=== PATIENT | male | born 1975 | race Caucasian/White ===

== ENCOUNTER 2019-06-17 11:21 | Inpatient (IN) | payer SELFPAY ==
--- NOTE | 2019-06-17 11:29 | W.ED.PSYCH ---
HPI - Psych General: Chief Complaint: Psychiatric Symptoms Stated Complaint: MHE Time Seen by Provider: 06/17/19 11:29 Source: patient Mode of arrival: ambulatory Limitations: no limitations History of Present Illness: HPI Narrative: Patient is a 44-year-old male who presents to ED today with complaints of auditory hallucinations and suicidal ideations. Patient tells me there is a family history of schizophrenia however he himself has never been diagnosed. He has been experiencing auditory hallucinations for the past 8 months but states the voices are worsening. He states the voices are calling me everything but a white man . He states that the voices often are a man and woman and they often speak of sexual things. He has not experienced any visual hallucinations. He states suicidal thoughts have been present for approximately a year and a half however these too, are worsening. He has no specific plan. He has never attempted suicide previously. He denies recent alcohol or drug use. He has never sought evaluation for the symptoms previously. MD complaint: suicidal ideation and other (auditory hallucinations ) Onset (ago): month(s) History of same: No Relieving factors: none Exacerbating factors: none Associated psychiatric symptoms: suicidal ideation and auditory hallucinations Associated symptoms: Reports auditory hallucinations, depression and suicidal ideation; Deny visual hallucinations or homicidal ideation Review of Systems Const: Denies: fever or chills Card: Denies: chest pain, palpitations, lightheadedness or syncope Resp: Denies: shortness of breath GI: Denies: abdominal pain, nausea, vomiting or diarrhea Skin/Breast: Denies: rash Neuro: Denies: headache Psych: Reports: depression, hopelessness, loss of interest, auditory hallucinations and suicidal ideation; Denies: anxiety, visual hallucinations or homicidal ideation [facility], [facility] ED PFSH: Social History Smoking and tobacco status: current every day smoker Physical Exam Const: COMMON NORMALS: no apparent distress, oriented x3, alert and well nourished GENERAL APPEARANCE: cooperative and well kempt ORIENTATION/CONSCIOUSNESS: Yes oriented to person, Yes oriented to place and Yes oriented to time Resp: COMMON NORMALS: normal respiratory effort and clear to auscultation bilaterally AUSCULTATION: clear to auscultation bilaterally Cardio: COMMON NORMALS: regular rate and regular rhythm RATE: regular rate RHYTHM: regular rhythm Neuro: JUANITO COMA SCALE: document GCS findings [place] coma scale eye opening: Spontaneous [place] coma scale verbal response: Orientated [place] coma scale motor response: Obey commands Juanito coma scale total score: 15 COMMON NORMALS: oriented x3 SENSORIUM/ORIENTATION: Yes alert, Yes oriented to person, Yes oriented to place and Yes oriented to time Psych: COMMON NORMALS: mental status grossly normal, thought process normal, cooperative, speech normal and activity/motor behavior normal APPEARANCE: Yes well kempt ACTIVITY/MOTOR BEHAVIOR: Yes appropriate eye contact and No psychomotor agitation SPEECH: Yes normal speech MOOD & AFFECT: Yes flat affect THOUGHT PROCESS: normal thought process THOUGHT CONTENT: Yes normal thought content MEMORY/COGNITION: Yes memory grossly intact and Yes cognition grossly intact INSIGHT: insight good JUDGEMENT: judgment good MDM - Psych Lab Data: Labs: Lab Results 06/17/19 06/17/19 06/17/19 Range/Units 11:55 11:58 11:58 WBC 8.8 (4.0-10.0) 10^3/ uL RBC 5.97 H (4.1-5.3) 10^6/u L Hgb 18.0 H (11.7-16.6) g/dL Hct 53.4 H (42.0-52.0) % MCV 89.4 (80-94) fL MCH 30.2 (28.0-34.0) pg MCHC 33.7 (30.0-36.0) g/dL RDW 12.1 (12.1-15.1) % Plt Count 346 (130-400) 10^3/c mm MPV 10.2 (7.4-10.4) fL Neut % (Auto) 75.0 % Lymph % (Auto) 17.9 % [place] % (Auto) 5.2 % Eos % (Auto) 1.1 % Baso % (Auto) 0.6 % Neut # (Auto) 6.6 (1.8-7.7) 10^3/u L Lymph # (Auto) 1.6 (0.8-4.8) 10^3/u L [place] # (Auto) 0.5 (0.2-0.9) 10^3/u L Eos # (Auto) 0.1 (0.0-0.8) 10^3/u L Baso # (Auto) 0.1 (0.0-0.1) 10^3/u L Nucleated RBC % (a uto) 0 % Nucleated RBCs # 0.0 /100WBC Sodium 138 (136-145) mmol/L Potassium 4.1 (3.5-5.1) mmol/L Chloride 100 (98-107) mmol/L Carbon Dioxide 24 (22-29) mmol/L Anion Gap 18.1 (5-19) BUN 9 (6-20) mg/dL Creatinine 1.1 (0.7-1.2) mg/dL GFR Calculation 72.4 L (90-130) mL/min Glucose 114 (65-115) mg/dL Calculated Osmolal ity 283 L (285-295) mOsm/k g Calcium 9.9 (8.5-10.5) mg/dL Total Bilirubin 0.4 (0.15-1.2) mg/dL AST 13 (0-40) U/L ALT 13 (0-41) U/L Alkaline Phosphata se 104 (40-130) IU/L Total Protein 8.1 (6.6-8.7) g/dL Albumin 4.5 (3.5-5.2) g/dL Globulin 3.6 (1.3-4.6) g/dL Salicylates < 0.3 L (3-10) mg/dL Urine Opiates Scre en Negative (Negative) ng/mL Acetaminophen < 5.0 L (10-30) ug/mL Ur Barbiturates Sc reen Negative (Negative) ng/mL Ur Phencyclidine S crn Negative (Negative) ng/mL Ur Amphetamines Sc reen Negative (Negative) ng/mL U Benzodiazepines Scrn Negative (Negative) ng/mL Urine Cocaine Scre en Negative (Negative) ng/mL U Marijuana (THC) Screen Negative (Negative) ng/mL Ethyl Alcohol < 10 (0-10) mg/dL Discharge Plan Discharge Patient Disposition: Psych Hosp/Unit w Plan Readm Clinical Impression: Suicidal ideation, Auditory hallucinations Condition: Stable Discharge Date/Time: 06/17/19 13:36 Coding Level of Care Code ED Benzene Worker for Ne Fwd Exam Detailed
[2019-06-17 11:33] VITALS: BP 129/91; PULSE 92; RESP 16; TEMP 37.2; O2SAT 95; BMI 36.6
[2019-06-17 12:08] LABS: Basophils # 0.1 10^3/uL (0.0-0.1); Basophils % 0.6 %; Eosinophils # 0.1 10^3/uL (0.0-0.8); Eosinophils % 1.1 %; Hematocrit 53.4 % (42.0-52.0); Lymphocytes # 1.6 10^3/uL (0.8-4.8); Lymphocytes % 17.9 %; Mean Corpuscular HGB Conc 33.7 g/dL (30.0-36.0); Mean Corpuscular Hemoglobin 30.2 pg (28.0-34.0); Mean Corpuscular Volume 89.4 fL (80-94); Mean Platelet Volume 10.2 fL (7.4-10.4); Monocytes # 0.5 10^3/uL (0.2-0.9); Monocytes % 5.2 %; Neutrophils # 6.6 10^3/uL (1.8-7.7); Nucleated Red Blood Cells % 0 %; Platelet Count 346 10^3/cmm (130-400); Red Blood Count 5.97 10^6/uL (4.1-5.3); Red Cell Distribution Width 12.1 % (12.1-15.1); White Blood Count 8.8 10^3/uL (4.0-10.0)
[2019-06-17 12:21] LABS: Amphetamines Screen Urine Negative (Negative); Barbiturates Screen Urine Negative (Negative); Benzodiazepines Screen Urine Negative (Negative); Cocaine Screen Urine Negative (Negative); Opiate Screen Urine Negative (Negative); PCP Screen Urine Negative (Negative); THC Screen Urine Negative (Negative)
[2019-06-17 12:25] LABS: Alanine Aminotransferase 13 U/L (0-41); Albumin Level 4.5 g/dL (3.5-5.2); Alkaline Phosphatase 104 IU/L (40-130); Anion Gap 18.1 (5-19); Aspartate Amino Transferase 13 U/L (0-40); Blood Urea Nitrogen 9 mg/dL (6-20); Calcium 9.9 mg/dL (8.5-10.5); Carbon Dioxide 24 mmol/L (22-29); Chloride 100 mmol/L (98-107); Globulin 3.6 g/dL (1.3-4.6); Glomerular Filtration Rate 72.4 mL/min (90-130); Glucose 114 mg/dL (65-115); Osmolality Calculated 283 mOsm/kg (285-295); Potassium 4.1 mmol/L (3.5-5.1); Sodium 138 mmol/L (136-145); Total Bilirubin 0.4 mg/dL (0.15-1.2); Total Protein 8.1 g/dL (6.6-8.7)
[2019-06-17 12:26] LABS: Acetaminophen < 5.0 ug/mL (10-30); Alcohol Level < 10 mg/dL (0-10); Salicylate < 0.3 mg/dL (3-10)
[2019-06-17 13:15] VITALS: BP 125/90; PULSE 68; RESP 17; O2SAT 98
[2019-06-17 14:13] VITALS: BP 127/91; PULSE 81; RESP 18; TEMP 36.9; O2SAT 97
[2019-06-17 20:56] VITALS: BP 116/71; PULSE 85; RESP 20; TEMP 37.6; O2SAT 94
--- NOTE | 2019-06-17 21:30 | PC.NURSE ---
pt offered sllep med at this time but refused.
[2019-06-18 06:00] VITALS: BP 104/66; PULSE 68; RESP 17; TEMP 36.9; O2SAT 93
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
[2019-06-18 14:00] VITALS: BP 103/68; PULSE 70; RESP 18; TEMP 36.6; O2SAT 95
[2019-06-18] MEDS: ARIPiprazole 10 mg Tablet PO (14:44)
[2019-06-18 21:28] VITALS: BP 113/79; PULSE 77; RESP 18; TEMP 37.1; O2SAT 94
[2019-06-19 06:00] VITALS: BP 127/82; PULSE 76; RESP 16; TEMP 36.6; O2SAT 96
[2019-06-19] MEDS: ARIPiprazole 10 mg Tablet PO (08:04)
--- NOTE | 2019-06-19 10:34 | P.PN_ITS ---
Subjective NPU Subjective: Interval history: The patient presents today reporting that he feels like the medication has been really helpful. He reports he is still having some suicidal thoughts and bad thoughts, but he reports those things are resolving, or at least starting to decrease. We discussed the risks, benefits, and alternatives of adding Prozac, or some other SSRI, to the current medi cation, and he understood and agreed to proceed as is documented in this note. The decision not to add was his and rested upon the fact that he felt the medication is going okay. 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 He reports that he is eating okay and sleeping better. Mental Status Exam MSE Comments: This is an obese, white male, with adequate dress, limited grooming, and improved eye contact. No abnormal movements, except for mild but improving psychomotor retardation. Cooperative with exam in no acute distress. Speech was decreased rate and volume, but improving. Mood described as a little better; affect congruent. Thought process, organized. Thought content: patient denied any homicidal ideation but endorsed suicidal ideation, which is improving, there were no delusions noted, but he did report continued paranoia, he reported that the auditory and visual hallucinations were resolving. Attention, concentration, and memory appeared intact but were not formally tested. He is alert and oriented times three. Insight and judgment are limited but improving. Vitals/I&O/Wt Last Vital Signs Temp 97.9 F 06/19/19 06:00 Pulse 76 06/19/19 06:00 Resp 16 06/19/19 06:00 BP 127/82 06/19/19 06:00 Pulse Ox 96 06/19/19 06:00 Weight last 48 hrs Weight 122.47 kg Data NPU : 06/17/19 11:58 06/17/19 11:58 A&P Additional A&P Information (1) Psychosis: This is a 44 year old, white male, who presents with some history of psychosis that may have had some inroads or activity in some of his methamphetamine periods, but he presents now with about a year and seven months of sobriety with continued hallucinations that are now becoming more than he can bear with genetic loading for mental health and addiction issues, who presents open to a trial of medication. Schizophrenia, rule out schizoaffective disorder. Rule out sleep psychosis secondary to a general medical condition, spe cifically sleep disorder, who presents with active psychosis, a year and seven months sobriety, open to medication trial. Continue current medication. Continue q 15-minute checks for safety. Encourager individual, group, and milieu therapy. Will work with social work to get outpatient resources in place. (2) Depression: Involuntary Hold Information 96 Hour Hold: 96 Hour Involuntary Admission: No Attestations NPU Medical Necessity Statement*: Inpatient hospitalization is medically necessary and the clinically appropriate intervention at this time. We will monitor medications and titrate to affect. Likely length of stay 2-4 days. Coding Level of Care Code Acute Missile And Missile Checkout Technician for Ne Calzada
[2019-06-19 14:00] VITALS: BP 115/66; PULSE 68; RESP 20; TEMP 37.1; O2SAT 93
[2019-06-19 21:59] VITALS: BP 107/78; PULSE 72; RESP 17; TEMP 36.7; O2SAT 94
[2019-06-20 06:00] VITALS: BP 118/72; PULSE 63; RESP 16; TEMP 36.6; O2SAT 97
[2019-06-20] MEDS: ARIPiprazole 10 mg Tablet PO (08:21)
--- NOTE | 2019-06-20 13:01 | PM.NPN ---
Subjective NPU Subjective: Interval history: Ta presented today reporting that he feels like he is continuing to do a little better. We reviewed the risks, benefits and alternatives again of adding an antidepressant as well as increasing his Abilify and he understood and agreed to proceed as is documented in this note. He was reasonably articulate in his desire not to start another medication and was also clear that he feels like the medication is helpful and he does not want to increase the dose, because as much as he does not want to be under dosed, he also does not want to be overdosed. He reports that he is functioning as well as he can with the restrictions on the unit. This is his first hospitalization, so he does not have any expectation about how things are supposed to go, but clearly people staying in their rooms and eating in their rooms is kind of a different circumstance for psychiatric inpatient. Mental Status Exam MSE Comments: This is an obese, white male, with adequate dress, grooming, and eye contact. No abnormal movements except for mild psychomotor retardation. Cooperative with exam in no acute distress. Speech was slightly decreased rate and volume. Mood described as a little better; affect congruent. Thought process, organized. He endorsed that his suicidal ideation is resolving, there were no delusions reported or noted, patient denied any auditory or visual hallucinations. Attention, concentration, and memory appeared intact but were not formally tested. Alert and oriented times three. Insight and judgment are improving. Intellectual ability likely limited. Vitals/I&O/Wt Last Vital Signs Temp 97.7 F 06/20/19 19:36 Pulse 90 06/20/19 19:36 Resp 20 H 06/20/19 19:36 BP 106/80 06/20/19 19:36 Pulse Ox 94 06/20/19 19:36 Data NPU : 06/17/19 11:58 06/17/19 11:58 A&P Additional A&P Information (1) Psychosis: This is a 44 year old, white male, who presents with some history of psychosis that may have had some inroads or activity in some of his methamphetamine periods, but he presents now with about a year and seven months of sobriety with continued hallucinations that are now becoming more than he can bear with genetic loading for mental health and addiction issues, who presents open to a trial of medication. Schizophrenia, rule out schizoaffective disorder. Rule out sleep psychosis secondary to a general medical condition, specifically sleep disorder, who presents with active psychosis, a year and seven months sobriety, open to medication trial. Continue current medication. Continue q 15-minute checks for safety. Encourager individual, group, and milieu therapy. Will work with social work to get outpatient resources in place. (2) Depression: Involuntary Hold Information 96 Hour Hold: 96 Hour Involuntary Admission: No Attestations NPU Medical Necessity Statement*: Inpatient hospitalization is medically necessary and the clinically appropriate intervention at this time. We will monitor medications and titrate to affect. Likely length of stay 2-4 days. Coding Level of Care Code Acute Slackline Operator for Ne Calzada
[2019-06-20 14:00] VITALS: BP 96/68; PULSE 90; RESP 18; TEMP 36.9; O2SAT 98
[2019-06-20 19:36] VITALS: BP 106/80; PULSE 90; RESP 20; TEMP 36.5; O2SAT 94
[2019-06-20] MEDS: trazodone 50 mg Tablet PO (20:40)
[2019-06-21 06:00] VITALS: BP 107/63; PULSE 60; RESP 22; TEMP 36.5; O2SAT 93
[2019-06-21] MEDS: ARIPiprazole 10 mg Tablet PO (08:17)
--- NOTE | 2019-06-21 13:04 | PM.NPN ---
Subjective NPU Subjective: Interval history: Ta presents today reporting that he is feeling pretty well, overall. He feels the medication is helping. He is glad that we did not increase it and he does not want to try another medication right now. He reports that he knows he really should stay on the medication and he is glad that he came, and he will stay as long as we think he should. He did raise the question, and expressed a desire, to hopefully be home by Sunday. We talked about the fact that tomorrow is Easter and there is certainly a part of him that wants to be with his family, but we agreed that we would look and see what plans the social workers put in the system that are in place for him to determine what arrangements need to be made prior to discharge. He reports that he is eating okay, and he is sleeping better. Mental Status Exam MSE Comments: This is an obese, white male, with adequate dress, grooming, and eye contact. No abnormal movements, except for mild, resolving, psychomotor retardation Cooperative with exam in no acute distress. Speech was more normal rate and volume. Mood described as getting better; affect congruent. Thought process, organized. Thought content: patient denied any suicidal or homicidal ideation, there were no delusions reported or noted, patient denied any auditory or visual hallucinations. Attention, concentration, and memory appeared intact but were not formally tested. Alert and oriented times three. Insight and judgment are limited but improving. Vitals/I&O/Wt Last Vital Signs Temp 97.7 F 06/21/19 06:00 Pulse 60 06/21/19 06:00 Resp 22 H 06/21/19 06:00 BP 107/63 06/21/19 06:00 Pulse Ox 93 06/21/19 06:00 Weight last 48 hrs Weight 117.197 kg Data NPU : 06/17/19 11:58 06/17/19 11:58 A&P Additional A&P Information (1) Psychosis: This is a 44 year old, white male, who presents with some history of psychosis that may have had some inroads or activity in some of his methamphetamine periods, but he presents now with about a year and seven months of sobriety with continued hallucinations that are now becoming more than he can bear with genetic loading for mental health and addiction issues, who presents open to a trial of medication. Schizophrenia, rule out schizoaffective disorder. Rule out sleep psychosis secondary to a general medical condition, specifically sleep disorder, who presents with improvements in his psychosis, a year and seven months sobriety, and successful trial of abilify. Continue current medication. Continue q 15-minute checks for safety. Encourager individual, group, and milieu therapy. Will work with social work to get outpatient resources in place. (2) Depression: Involuntary Hold Information 96 Hour Hold: 96 Hour Involuntary Admission: No Attestations NPU Medical Necessity Statement*: Inpatient hospitalization is medically necessary and the clinically appropriate intervention at this time. We will monitor medications and titrate to affect. Likely length of stay 1-2 days. Will consider discharge tomorrow. Coding Level of Care Code Acute Police Sergeant for Ne Calzada
[2019-06-21 13:29] VITALS: BP 110/70; PULSE 70; RESP 18; TEMP 36.6; O2SAT 97
[2019-06-21 20:26] VITALS: BP 108/80; PULSE 83; RESP 18; TEMP 36.5; O2SAT 93
[2019-06-21] MEDS: trazodone 50 mg Tablet PO (20:58)
[2019-06-22] MEDS: diphenhydrAMINE 50 mg Capsule PO (03:02)
[2019-06-22 06:00] VITALS: BP 118/77; PULSE 73; RESP 16; TEMP 36.6; O2SAT 95
[2019-06-22] MEDS: ARIPiprazole 10 mg Tablet PO (08:54)
--- NOTE | 2019-06-22 11:44 | P.PN_ITS ---
Subjective NPU Subjective: Interval history: Ta presents today reporting that he is feeling better. We discussed his insurance situation and it appears he does not have insurance, which puts his access to the medication in jeopardy. We discussed an overall plan to get him connected with services and getting connected with Medicaid. We agreed, though, to do this effectively, we needed him to at least stay until tomorrow. He would be able to get his medications at [facility], and we could get somebody to come in and make sure his application for Medicaid was done, so that he has the best chance to be on insurance and get the medications that are necessary for his well being. We discussed his clear psychosis that was much improved with the Abilify and agreed that we would get the paperwork together today so that he would be able to discharge on the Abilify, he will have to get at the [facility] pharmacy. Mental Status Exam MSE Comments: This is an obese, white male, with limited dress, adequate jd oming, and limited eye contact. No abnormal movements, except for mild psychomotor retardation that is resolving. Cooperative with exam in no acute distress. Speech was slightly decreased rate and volume. Mood described as a little better; affect still slightly subdued. Thought process, organized. T hought content: patient denied any suicidal or homicidal ideation, there were no delusions reported or noted, patient denied any auditory or visual hallucinations. Attention, concentration, and memory appeared intact but were not formally tested. Alert and oriented times three. Insight and judgment are limited but improving. Vitals/I&O/Wt Last Vital Signs Temp 97.9 F 06/22/19 06:00 Pulse 73 06/22/19 06:00 Resp 16 06/22/19 06:00 BP 118/77 06/22/19 06:00 Pulse Ox 95 06/22/19 06:00 Weight last 48 hrs Weight 117.197 kg Data NPU : 06/17/19 11:58 06/17/19 11:58 A&P Additional A&P Information (1) Psychosis: This is a 44 year old, white male, who presents with some history of psychosis that may have had some inroads or activity in some of his methamphetamine periods, but he presents now with about a year and seven months of sobriety with continued hallucinations that are now becoming more than he can bear with genetic loading for mental health and addiction issues, who presents open to a trial of medication. Schizophrenia, rule out schizoaffective disorder. Rule out sleep psychosis secondary to a general medical condition, specifically sleep disorder, who presents with improvements in his psychosis, a year and seven months sobriety, and successful trial of abilify. Continue current medication. Continue q 15-minute checks for safety. Encourager individual, group, and milieu therapy. Make sure he has application for medicaid in place Will work with social work to get outpatient resources in place. (2) Depression: Involuntary Hold Information 96 Hour Hold: 96 Hour Involuntary Admission: No Attestations NPU Medical Necessity Statement*: Inpatient hospitalization is medically necessary and the clinically appropriate intervention at this time. We will monitor medications and titrate to affect. Likely length of stay 1-2 days. Will plan for discharge tomorrow after we make sure application for medicaid/insurance has been initiated. Coding Level of Care Code Acute Group Work Program Aide for [place]
[2019-06-22 13:10] VITALS: BP 120/80; PULSE 78; RESP 18; TEMP 36.7
[2019-06-22] MEDS: acetaminophen 325 mg Tablet 650 MG PO (18:51)
[2019-06-22 20:58] VITALS: BP 104/64; PULSE 73; RESP 20; TEMP 37.2; O2SAT 95
[2019-06-23 06:00] VITALS: BP 109/73; PULSE 72; RESP 18; TEMP 36.7; O2SAT 96
[2019-06-23] MEDS: ARIPiprazole 10 mg Tablet PO (09:10)
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
[2019-06-23 11:17] VITALS: BP 109/73; PULSE 72; RESP 18; TEMP 36.7; O2SAT 96
[2019-06-23 11:19] VITALS: BP 109/73; PULSE 72; RESP 18; TEMP 36.7; O2SAT 96
== END 2019-06-23 11:27 | disposition home or self-care (01) | DRG 885 ==
LOC: ER 13:04 → NP 13:09
PROVIDERS: Admitting Provider Psychiatry & Neurology Psychiatry; Emergency Provider Physician Assistant; Family Provider Nurse Practitioner; Visit Provider Psychiatry & Neurology Psychiatry
DX: F23 Brief psychotic disorder (principal); E66.9 Obesity, unspecified; Z68.35 Body mass index [BMI] 35.0-35.9, adult; F17.210 Nicotine dependence, cigarettes, uncomplicated; F32.9 Major depressive disorder, single episode, unspecified
CPT/HCPCS: 12345; 36415; 80053; 80306; 80307; 85025; 99284; Q0163

== ENCOUNTER 2019-11-06 09:31 | Emergency (ER) | payer SELFPAY ==
[2019-11-06 09:31] VITALS: BP 122/75; PULSE 79; RESP 18; TEMP 36.9; O2SAT 95; BMI 38.0
[2019-11-06 09:39] VITALS: BP 122/75; PULSE 78; RESP 16; TEMP 36.9; O2SAT 95
--- NOTE | 2019-11-06 09:44 | XR_ITS ---
WS: [id number] Portable AP upright chest, 11/06/2019 Clinical Data: chest pain Comparison: None. Findings: No nodules, masses or effusions are seen. The heart is normal. The pulmonary vascularity is not increased. No pneumonia or pneumothorax is seen. XR/XR chest 1V portable [id number] Impression: Negative chest.
--- NOTE | 2019-11-06 09:52 | ED_ITS ---
HPI - Chest Pain General: Chief Complaint: Chest Pain Stated Complaint: CHEST PAIN/ HEARING VOICES Time Seen by Provider: 11/06/19 09:35 History of Present Illness: HPI narrative: This patient is a 44-year-old male presenting today with chest pain. He has been having chest pain off and on since last night. He said it started around 7:00. It comes and goes and he has not been able to identify any factors which cause it to be better or worse. He has been under stress but he said getting stressed out and upset does not seem to bring it on. Exertion does not necessarily bring it on this morning it did start after he ate some [place] fries but he had not noticed any other association with food. He does get nauseous and sweaty with it. This morning it started while he was at [employer] and he drove himself to a local police station. They called EMS who administered aspirin and 2 nitro and brought him in. The pain at its worst was about a 9 out of 10. It is now a 2 out of 10. He does not necessarily think that the nitro helped. He does not have any history of cardiac disease. He does not have a history of diabetes or hypertension. He does not know if his cholesterol is high. He does have a strong family history of cardiac disease. Additionally he has a psychiatric history. He was admitted to the NPU in June. At that time he was having depression and auditory hallucinations. He was started on aripipazole which he took for 60 days and then was unable to get refill due to no insurance. He also became a restorationist member and feels like that is helped him. He no longer feels like he has any depression but he has continued to have the auditory hallucinations since June. Today he said they are telling him that they are in his stomach and around his heart. They are telling him if they are going to kill him and take everything he has. He feels that this may be related to the chest pain in some way. MD complaint: chest pain Onset (ago): hour(s) (15, off and on) Timing of current episode: episodic Prior episodes: No Onset: during rest Pain location: epigastric Pain radiation: none Severity: severe Quality: tightness and sharp Relieving factors: nothing Exacerbating factors: nothing Associated symptoms: Reports other (Auditory hallucinations); Deny abdominal pain, dyspnea, fever(s), nausea or vomiting Treatment prior to arrival: aspirin and nitroglycerin Review of Systems General: Reports: 10 or more systems reviewed and unremarkable except in HPI and below Const: Denies: fever(s), chills, fatigue or malaise Eyes: Denies: change in vision ENMT: Denies: odynophagia Card: Denies: chest pain or swelling of feet/ankles Resp: Denies: dyspnea, productive cough or non-productive cough GI: Denies: abdominal pain, nausea or vomiting : Denies: flank pain Musc: Denies: neck pain or back pain Skin/Breast: Denies: rash Neuro: Denies: headache(s), numbness in extremities or weakness in extremities Psych: Reports: auditory hallucinations; Denies: depression Jonah/Lymph: Denies: easy bruising or easy bleeding PFSH ED PFSH: Medical History Schizophrenia Family History Mother Psychiatric illness CAD (coronary artery disease) Social History Smoking and tobacco status: current every day smoker Current gender identity: Male Physical Exam Const: COMMON NORMALS: no acute distress, patient oriented x3, no limitations and alert GENERAL APPEARANCE: cooperative and comfortable HENMT: HEAD & SCALP: normal to inspection FACE & SINUS: normal facial exam Eye: GENERAL EYE: appearance normal, both eyes and all related structures Neck/C-Spine: COMMON NORMALS: supple, no meningeal signs and no JVD Chest: COMMONS NORMALS: normal inspection of the chest Resp: COMMON NORMALS: normal respiratory effort, No use of accessory muscles and clear to auscultation bilaterally AUSCULTATION: clear to auscultation bilaterally Cardio: COMMON NORMALS: no JVD, regular rate, regular rhythm and No murmurs present (Cardio) RATE: regular rate RHYTHM: regular rhythm GI: COMMON NORMALS: Normal to inspection, nondistended, normoactive bowel sounds present, Soft to palpation and non-tender INSPECTION: Yes normal to inspection AUSCULTATION: Yes normoactive bowel sounds PALPATION: Yes Soft to palpation Back/Pelvis: COMMON NORMALS: thoracic and lumbar spine normal to inspection Extremity: COMMON NORMALS: normal to inspection Neuro: COMMON NORMALS: patient oriented x3, moves all extremities, no focal motor deficits and no sensory deficits noted SENSORIUM/ORIENTATION: Yes alert MENINGEAL SIGNS: Yes no meningeal signs Psych: COMMON NORMALS: mental status grossly normal, cooperative and normal affect Skin: COMMON NORMALS: no rashes or lesions noted and turgor normal GENERAL SKIN EXAM: no rashes or lesions noted and turgor normal Course ED course: Work-up for chest pain was benign. I spoke with the patient on several different occasions regarding his hallucinations. He is not feeling suicidal. He has no thoughts of harming anyone else. I offered him the option of being admitted to the stress unit for further management. We also discussed the option of starting him on a medication either the one he had been on previously or a new one. He did not really want to do either of these things. He does want to start following up with an outpatient counselor. He was given referral to [facility]. He understands that he should return if he does have any thoughts of harming himself or if the voices start telling him to harm himself. There is no indication to hold him against his wishes. Vital Signs: Vital signs: Vital Signs Temperature 98.9 F 11/06/19 13:41 Pulse Rate 76 11/06/19 13:41 Respiratory Rate 18 11/06/19 13:41 Blood Pressure 110/67 11/06/19 13:41 Pulse Oximetry 96 11/06/19 13:41 MDM - Chest Pain Lab Data: Labs: Lab Results 11/06/19 11/06/19 11/06/19 Range/Units 09:51 09:51 09:51 WBC 9.8 (4.0-10.0) 10^3/ uL RBC 5.64 H (4.1-5.3) 10^6/u L Hgb 16.6 (11.7-16.6) g/dL Hct 49.3 (42.0-52.0) % MCV 87.4 (80-94) fL MCH 29.4 (28.0-34.0) pg MCHC 33.7 (30.0-36.0) g/dL RDW 12.0 L (12.1-15.1) % Plt Count 356 (130-400) 10^3/c mm MPV 10.0 (7.4-10.4) fL Neut % (Auto) 66.3 % Lymph % (Auto) 21.0 % [place] % (Auto) 9.5 % Eos % (Auto) 2.3 % Baso % (Auto) 0.7 % Neut # (Auto) 6.48 (1.8-7.7) 10^3/u L Lymph # (Auto) 2.1 (0.8-4.8) 10^3/u L [place] # (Auto) 0.9 (0.2-0.9) 10^3/u L Eos # (Auto) 0.2 (0.0-0.8) 10^3/u L Baso # (Auto) 0.1 (0.0-0.1) 10^3/u L Nucleated RBC % (a uto) 0 % Nucleated RBCs # 0.0 /100WBC PT 13.60 (12.1-14.9) SECO NDS INR 1.01 (0.8-1.2) Sodium 135 L (136-145) mmol/L Potassium 3.3 L (3.5-5.1) mmol/L Chloride 100 (98-107) mmol/L Carbon Dioxide 23 (22-29) mmol/L Anion Gap 15.3 (5-19) BUN 10 (6-20) mg/dL Creatinine 1.3 H (0.7-1.2) mg/dL GFR Calculation 59.7 L (90-130) mL/min Glucose 144 H (65-115) mg/dL Calculated Osmolal ity 279 L (285-295) mOsm/k g Calcium 9.1 (8.5-10.5) mg/dL Total Bilirubin 1.1 (0.15-1.2) mg/dL AST 24 (0-40) U/L ALT 21 (0-41) U/L Alkaline Phosphata se 97 (40-130) IU/L Troponin T Baselin e (0-15) ng/L Troponin T 120 Min iroquois (0-15) ng/L Delta Troponin T (0-10) ABS# Total Protein 7.7 (6.6-8.7) g/dL Albumin 4.4 (3.5-5.2) g/dL Globulin 3.3 (1.3-4.6) g/dL Lipase 28 (13-60) U/L TSH 0.62 (0.27-4.20) uIU/ mL Urine Color (Yellow) Urine Appearance (CLEAR) Urine pH (5-7) Ur Specific Gravit y (1.005-1.030) Urine Protein (Negative) Urine Glucose (UA) (Normal) Urine Ketones (Negative) Urine Blood (Negative) Urine Nitrate (Negative) Urine Bilirubin (NEGATIVE) Urine Urobilinogen (Negative) mg/dL Ur Leukocyte Maira ase (Negative) Salicylates 1.8 L (3-10) mg/dL Urine Opiates Scre en (Negative) ng/mL Acetaminophen < 5.0 L (10-30) ug/mL Ur Barbiturates Sc reen (Negative) ng/mL Ur Phencyclidine S crn (Negative) ng/mL Ur Amphetamines Sc reen (Negative) ng/mL U Benzodiazepines Scrn (Negative) ng/mL Urine Cocaine Scre en (Negative) ng/mL U Marijuana (THC) Screen (Negative) ng/mL Ethyl Alcohol < 10 (0-10) mg/dL 11/06/19 11/06/19 11/06/19 Range/Units 09:51 10:15 10:15 WBC (4.0-10.0) 10^3/ uL RBC (4.1-5.3) 10^6/u L Hgb (11.7-16.6) g/dL Hct (42.0-52.0) % MCV (80-94) fL MCH (28.0-34.0) pg MCHC (30.0-36.0) g/dL RDW (12.1-15.1) % Plt Count (130-400) 10^3/c mm MPV (7.4-10.4) fL Neut % (Auto) % Lymph % (Auto) % [place] % (Auto) % Eos % (Auto) % Baso % (Auto) % Neut # (Auto) (1.8-7.7) 10^3/u L Lymph # (Auto) (0.8-4.8) 10^3/u L [place] # (Auto) (0.2-0.9) 10^3/u L Eos # (Auto) (0.0-0.8) 10^3/u L Baso # (Auto) (0.0-0.1) 10^3/u L Nucleated RBC % (a uto) % Nucleated RBCs # /100WBC PT (12.1-14.9) SECO NDS INR (0.8-1.2) Sodium (136-145) mmol/L Potassium (3.5-5.1) mmol/L Chloride (98-107) mmol/L Carbon Dioxide (22-29) mmol/L Anion Gap (5-19) BUN (6-20) mg/dL Creatinine (0.7-1.2) mg/dL GFR Calculation (90-130) mL/min Glucose (65-115) mg/dL Calculated Osmolal ity (285-295) mOsm/k g Calcium (8.5-10.5) mg/dL Total Bilirubin (0.15-1.2) mg/dL AST (0-40) U/L ALT (0-41) U/L Alkaline Phosphata se (40-130) IU/L Troponin T Baselin e 8 (0-15) ng/L Troponin T 120 Min iroquois (0-15) ng/L Delta Troponin T (0-10) ABS# Total Protein (6.6-8.7) g/dL Albumin (3.5-5.2) g/dL Globulin (1.3-4.6) g/dL Lipase (13-60) U/L TSH (0.27-4.20) uIU/ mL Urine Color Dark yellow (Yellow) Urine Appearance Clear (CLEAR) Urine pH 5 (5-7) Ur Specific Gravit y 1.020 (1.005-1.030) Urine Protein Neg (Negative) Urine Glucose (UA) Norm (Normal) Urine Ketones Negative (Negative) Urine Blood Neg (Negative) Urine Nitrate Negative (Negative) Urine Bilirubin Neg (NEGATIVE) Urine Urobilinogen 4 H (Negative) mg/dL Ur Leukocyte Maira ase Negative (Negative) Salicylates (3-10) mg/dL Urine Opiates Scre en Negative (Negative) ng/mL Acetaminophen (10-30) ug/mL Ur Barbiturates Sc reen Negative (Negative) ng/mL Ur Phencyclidine S crn Negative (Negative) ng/mL Ur Amphetamines Sc reen Negative (Negative) ng/mL U Benzodiazepines Scrn Negative (Negative) ng/mL Urine Cocaine Scre en Negative (Negative) ng/mL U Marijuana (THC) Screen Negative (Negative) ng/mL Ethyl Alcohol (0-10) mg/dL 11/06/19 Range/Units 12:01 WBC (4.0-10.0) 10^3/ uL RBC (4.1-5.3) 10^6/u L Hgb (11.7-16.6) g/dL Hct (42.0-52.0) % MCV (80-94) fL MCH (28.0-34.0) pg MCHC (30.0-36.0) g/dL RDW (12.1-15.1) % Plt Count (130-400) 10^3/c mm MPV (7.4-10.4) fL Neut % (Auto) % Lymph % (Auto) % [place] % (Auto) % Eos % (Auto) % Baso % (Auto) % Neut # (Auto) (1.8-7.7) 10^3/u L Lymph # (Auto) (0.8-4.8) 10^3/u L [place] # (Auto) (0.2-0.9) 10^3/u L Eos # (Auto) (0.0-0.8) 10^3/u L Baso # (Auto) (0.0-0.1) 10^3/u L Nucleated RBC % (a uto) % Nucleated RBCs # /100WBC PT (12.1-14.9) SECO NDS INR (0.8-1.2) Sodium (136-145) mmol/L Potassium (3.5-5.1) mmol/L Chloride (98-107) mmol/L Carbon Dioxide (22-29) mmol/L Anion Gap (5-19) BUN (6-20) mg/dL Creatinine (0.7-1.2) mg/dL GFR Calculation (90-130) mL/min Glucose (65-115) mg/dL Calculated Osmolal ity (285-295) mOsm/k g Calcium (8.5-10.5) mg/dL Total Bilirubin (0.15-1.2) mg/dL AST (0-40) U/L ALT (0-41) U/L Alkaline Phosphata se (40-130) IU/L Troponin T Baselin e (0-15) ng/L Troponin T 120 Min [place]quois 7.06 (0-15) ng/L Delta Troponin T -0.94 L (0-10) ABS# Total Protein (6.6-8.7) g/dL Albumin (3.5-5.2) g/dL Globulin (1.3-4.6) g/dL Lipase (13-60) U/L TSH (0.27-4.20) uIU/ mL Urine Color (Yellow) Urine Appearance (CLEAR) Urine pH (5-7) Ur Specific Gravit y (1.005-1.030) Urine Protein (Negative) Urine Glucose (UA) (Normal) Urine Ketones (Negative) Urine Blood (Negative) Urine Nitrate (Negative) Urine Bilirubin (NEGATIVE) Urine Urobilinogen (Negative) mg/dL Ur Leukocyte Maira ase (Negative) Salicylates (3-10) mg/dL Urine Opiates Scre en (Negative) ng/mL Acetaminophen (10-30) ug/mL Ur Barbiturates Sc reen (Negative) ng/mL Ur Phencyclidine S crn (Negative) ng/mL Ur Amphetamines Sc reen (Negative) ng/mL U Benzodiazepines Scrn (Negative) ng/mL Urine Cocaine Scre en (Negative) ng/mL U Marijuana (THC) Screen (Negative) ng/mL Ethyl Alcohol (0-10) mg/dL Discharge Plan Discharge Patient Disposition: Home Clinical Impression: Auditory hallucinations Chest pain Qualifiers: Chest pain type: unspecified Qualified Code(s): R07.9 - Chest pain, unspecified Condition: Stable Prescriptions: No Action No Known Home Medications RF: 0 Discharge Orders: Discharge Order (Routine); Ordered 11/06/19 Ordered By: Gely Lebron Referrals: Bonny Dempsey DPM [Family Provider] - 4-7 days [facility], [Staff Physician] - 7-10 days Discharge Diet: Usual diet Discharge Activity: Resume usual activity Patient Instructions: Chest Pain (ED) Activity Restrictions/Additional Instructions: Follow-up with your primary care provider and a counselor for further evaluation of both your chest pain and your hearing voices. Please return to the emergency room if you have thoughts of hurting yourself or anyone else or decide that she would like to have inpatient treatment. Return as well for worsening chest pain or new symptoms such as shortness of breath. Stand Alone Forms: Work/School Release Discharge Date/Time: 11/06/19 13:44 Coding Level of Care Code ED Transformation Coach for Ne Fwd Exam Comprehensive
[2019-11-06 09:59] LABS: Basophils # 0.1 10^3/uL (0.0-0.1); Basophils % 0.7 %; Eosinophils # 0.2 10^3/uL (0.0-0.8); Eosinophils % 2.3 %; Hematocrit 49.3 % (42.0-52.0); Hemoglobin 16.6 g/dL (11.7-16.6); Lymphocytes # 2.1 10^3/uL (0.8-4.8); Mean Corpuscular HGB Conc 33.7 g/dL (30.0-36.0); Mean Corpuscular Hemoglobin 29.4 pg (28.0-34.0); Mean Corpuscular Volume 87.4 fL (80-94); Monocytes # 0.9 10^3/uL (0.2-0.9); Monocytes % 9.5 %; Neutrophils # 6.48 10^3/uL (1.8-7.7); Neutrophils % 66.3 %; Nucleated Red Blood Cells % 0 %; Platelet Count 356 10^3/cmm (130-400); Red Blood Count 5.64 10^6/uL (4.1-5.3); White Blood Count 9.8 10^3/uL (4.0-10.0)
[2019-11-06 10:10] LABS: INR 1.01 (0.8-1.2)
[2019-11-06 10:20] VITALS: BP 106/71; PULSE 74; RESP 16; O2SAT 95
--- NOTE | 2019-11-06 10:21 | ECG_ITS ---
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 Measurements Intervals [place] Rate: 77 P: 55 CT: 158 QRS: 8 QRSD: 102 T: 56 QT: 365 QTc: 413 Interpretive Statements SINUS RHYTHM No previous ECG available for comparison Electronically Signed On 11-07-2019 20:33:01 CDT by Liberty Krishnan M.D. [id number]
[2019-11-06 10:25] LABS: Add Urine Microscopic? NO
[2019-11-06 10:26] LABS: Alanine Aminotransferase 21 U/L (0-41); Albumin Level 4.4 g/dL (3.5-5.2); Alkaline Phosphatase 97 IU/L (40-130); Anion Gap 15.3 (5-19); Aspartate Amino Transferase 24 U/L (0-40); Blood Urea Nitrogen 10 mg/dL (6-20); Calcium 9.1 mg/dL (8.5-10.5); Carbon Dioxide 23 mmol/L (22-29); Chloride 100 mmol/L (98-107); Globulin 3.3 g/dL (1.3-4.6); Glomerular Filtration Rate 59.7 mL/min (90-130); Glucose 144 mg/dL (65-115); Lipase 28 U/L (13-60); Osmolality Calculated 279 mOsm/kg (285-295); Potassium 3.3 mmol/L (3.5-5.1); Salicylate 1.8 mg/dL (3-10); Sodium 135 mmol/L (136-145); Thyroid Stimulating Hormone 0.62 uIU/mL (0.27-4.20); Total Bilirubin 1.1 mg/dL (0.15-1.2); Total Protein 7.7 g/dL (6.6-8.7)
[2019-11-06 10:27] LABS: Acetaminophen < 5.0 ug/mL (10-30); Alcohol Level < 10 mg/dL (0-10)
[2019-11-06 10:35] LABS: Amphetamines Screen Urine Negative (Negative); Barbiturates Screen Urine Negative (Negative); Benzodiazepines Screen Urine Negative (Negative); Cocaine Screen Urine Negative (Negative); Opiate Screen Urine Negative (Negative); PCP Screen Urine Negative (Negative); THC Screen Urine Negative (Negative)
[2019-11-06 10:43] LABS: Troponin(5th) Baseline 8 ng/L (0-15)
[2019-11-06 11:04] LABS: Bilirubin Urine Neg (NEGATIVE); Blood Urine Neg (Negative); Glucose Urine UA Norm (Normal); Ketones Urine Negative (Negative); Leukocyte Esterase Urine Negative (Negative); Nitrate Urine Negative (Negative); Protein Urine Neg (Negative); Urine Appearance Clear (CLEAR); Urine Color Dark Yellow (Yellow); Urobilinogen Urine 4 mg/dL (Negative); pH Urine 5 (5-7)
--- NOTE | 2019-11-06 12:21 | ECG_ITS ---
[facility] Test Date: 2019-11-06 Pat Name: Ta Constantino Department: Room: Gender: Male Manager Change: : 1975 Requested By: Gely Sommers Order Number: [id number] Ester MD: Liberty Krishnan M.D. Measurements Intervals [place] Rate: 76 P: 44 OK: 164 QRS: -14 QRSD: 97 T: 31 QT: 382 QTc: 430 Interpretive Statements SINUS RHYTHM MODERATE VOLTAGE CRITERIA FOR LVH, CONSIDER NORMAL VARIANT [MEETS CRITERIA IN ONE OF: R(aVL), S(V1), R(V5), R(V5/V6)+S(V1)] Compared to ECG 11/06/2019 09:37:27 No significant changes Electronically Signed On 11-07-2019 20:56:52 CDT by Liberty Krishnan M.D. [id number]
[2019-11-06 12:27] LABS: Troponin 5 2HR 7.06 ng/L (0-15)
[2019-11-06 12:29] LABS: Troponin 5 2HR Delta -0.94 ABS# (0-10)
[2019-11-06 12:49] VITALS: BP 110/73; PULSE 75; RESP 18; O2SAT 96
[2019-11-06 13:41] VITALS: BP 110/67; PULSE 76; RESP 18; TEMP 37.2; O2SAT 96
== END 2019-11-06 13:44 | disposition home or self-care (01) ==
PROVIDERS: Emergency Provider Emergency Medicine; Family Provider Nurse Practitioner
DX: R07.9 Chest pain, unspecified (principal); R44.0 Auditory hallucinations; F17.210 Nicotine dependence, cigarettes, uncomplicated
CPT/HCPCS: 12345; 36415; 71045; 80053; 80306; 80307; 81003; 83690; 84443; 84484; 85025; 85610; 93005; 99284

== ENCOUNTER → 2020-02-26 11:14 | Outpatient (BNVA) | payer SELFPAY | PROVIDERS: Family Provider Nurse Practitioner; Visit Provider Nurse Practitioner Family | DX: M79.672 Pain in left foot (principal); M19.072 Primary osteoarthritis, left ankle and foot | CPT/HCPCS: 73630 ==

== ENCOUNTER → 2020-04-06 12:54 | Outpatient (BNVA) | payer OTHER, SELFPAY | PROVIDERS: Family Provider Nurse Practitioner; Visit Provider Nurse Practitioner Family | DX: Z20.822 Contact with and (suspected) exposure to COVID-19 (principal) | CPT/HCPCS: 87635 ==

== ENCOUNTER 2025-02-14 22:09 | Emergency (ER) | payer MEDICAID, SELFPAY ==
[2025-02-14 22:11] VITALS: BP 112/74; PULSE 83; RESP 18; TEMP 37.1; O2SAT 93; BMI 41.8
--- NOTE | 2025-02-14 22:38 | XRR_ITS ---
PROCEDURE INFORMATION: Exam: XR Right Knee Exam date and time: 02/14/2025 10:41 PM Age: 49 years old Clinical indication: Injury or trauma; Blunt trauma and laceration; Right; Patella or knee; Foreign body involvement not specified; Fall with small linear laceration to knee across patella. TECHNIQUE: Imaging protocol: Radiologic exam of the right knee. Views: 1 or 2 views. COMPARISON: No relevant prior studies available. FINDINGS: Bones/joints: There is no acute fracture or dislocation. If symptoms persist, follow-up imaging in several days may be useful to exclude an occult or subtle fracture. Mild narrowing of the medial and lateral joint compartments, no significant joint margin spurring. Mild bony spurring from the superior aspect of the patella. Soft tissues: Fairly prominent soft tissue swelling anterior to the knee, with a small soft tissue defect anterior to the patella, likely representing laceration. No visible/definite radiopaque soft tissue foreign body. Mild soft tissue fullness in the suprapatellar region may indicate evidence of joint effusion. XR/XR knee RT 1-2V [id number] IMPRESSION: 1. No acute fracture or dislocation. 2. Possible knee joint effusion. 3. Other findings discussed above.
--- NOTE | 2025-02-14 23:10 | W.ED.WOUNDLC ---
HPI - Wound/Laceration General: Chief Complaint: Wound/Laceration Stated Complaint: lac right knee Time Seen by Provider: 02/14/25 22:36 History of Present Illness: Patient was out with the [employer] group this morning approximately 9?10 AM, helping collect wood for local residence, for firewood, when he turned, slipped on a rock, and fell directly on it causing a laceration to his right knee. He stated he had increasing pain over the course of the day, and sought medical attention. He assumed his laceration was not that bad. Associated symptoms: Denies chills, fever(s), nausea or vomiting Related Data Previous Rx's ?Medication ?Instructions ?Recorded albuterol sulfate 90 mcg/actuation 2 puff inhalation Q6H PRN 04/06/20 aerosol inhaler (ProAir HFA) shortness of breath or wheezing #8.5 grams prednisone 20 mg tablet 20 mg PO BID 5 days #10 tabs 02/02/21 celecoxib 200 mg capsule 200 mg PO DAILY #30 caps 02/14/25 cephalexin 500 mg capsule 500 mg PO TID 14 days #42 caps 02/14/25 methocarbamol 750 mg tablet 750 mg PO Q8H PRN muscle spasm #30 02/14/25 tabs Allergies Allergy/AdvReac Type Severity Reaction Status Date / Time No Known Allergies Allergy Verified 02/14/25 22:17 Review of Systems Const: Denies: fever(s) or chills Card: Denies: chest pain Resp: Denies: dyspnea, productive cough, non-productive cough, wheezing or chest congestion GI: Denies: abdominal pain, nausea, vomiting or diarrhea : Denies: flank pain or difficulty urinating Musc: Reports: extremity pain (Right knee pain), extremity swelling, joint pain, joint swelling, joint redness, joint stiffness and limited range of motion; Denies: joint warmth Skin/Breast: Denies: rash Neuro: Denies: headache(s) or numbness in extremities Psych: Denies: difficulty concentrating [facility] PFSH: Medical History (Updated 02/14/25 @ 23:10 by THERESA Dukes) Schizophrenia Family History Mother Psychiatric illness CAD (coronary artery disease) Social History (Reviewed 01/26/21 @ 12:27 by ISAAK Alexandre Smoking and tobacco/nicotine status: current every day tobacco/nicotine user Current gender identity: Male Physical Exam Const: COMMON NORMALS: no acute distress, average body habitus and patient oriented x3 HENMT: COMMON NORMALS: normocephalic HEAD & SCALP: normocephalic Resp: COMMON NORMALS: normal respiratory effort, No retractions and No use of accessory muscles Cardio: COMMON NORMALS: regular rate and regular rhythm RATE: regular rate RHYTHM: regular rhythm GI: COMMON NORMALS: Normal to inspection, nondistended, normoactive bowel sounds present, Soft to palpation, non-tender and No hepatosplenomegaly present PALPATION: Yes Soft to palpation and Yes No hepatosplenomegaly present Extremity: NARRATIVE EXTREMITY EXAM: Laceration mid right knee: The area was anesthetized with lidocaine with epinephrine x 5 mL, cleaned vigorously with 500 mL of normal saline, area was examined extensively, and did not show any additional concern, 6 chapo were placed in a linear horizontal fashion, Vaseline gauze was placed over the chapo, nonadherent dressing, Kerlix, and Coban. EXTREMITY IMAGE (FRONT):  1. 3 cm laceration Neuro: COMMON NORMALS: patient oriented x3 Procedures Laceration Laceration 1: Site: lower extremity (knee) Side (If applicable): right Size (cm): 3 Description: linear and contaminated Depth: simple, single layer Local Anesthetic: lidocaine 1% and with epi Amount of anesthesia used (mL): 5 Pre-repair: wound explored, irrigated extensively (500 ml) and deep structures intact Skin layer closed with: other ([place]) Size (cm): other ([place]) Number of sutures: 6 Technique: other ([place]) Course Vital Signs: Vital signs: Vital Signs Temperature 98.8 F 02/14/25 22:11 Pulse Rate 83 02/14/25 22:11 Respiratory Rate 18 02/14/25 22:11 Blood Pressure 112/74 02/14/25 22:11 Pulse Oximetry 93 02/14/25 22:11 Oxygen Delivery Me thod Room Air 02/14/25 22:11 MDM - Wound/Laceration Medical Decision Making Given the 13 hours it took patient to seek medical attention, the open wound directly to his joint, he is high risk for septic arthritis, cellulitis. This was discussed with patient. He was placed on cephalexin, and referral to orthopedist was made. Wound care was went over with patient. He is to return here if he has further issues as discussed. He is to remove his chapo in 14 days. X-ray did not show any acute findings for fracture. Localized joint effusion was noted. Medical Records I reviewed the patient's medical records. Lab Data I reviewed the patient's lab results. Radiology Impressions Knee X-Ray 02/14/25 22:38 IMPRESSION: 1. No acute fracture or dislocation. 2. Possible knee joint effusion. 3. Other findings discussed above. All radiology interpretation(s) finalized by discharge Discharge Plan Discharge Patient Disposition: Home Clinical Impression: Laceration of knee, right Qualifiers: Encounter type: initial encounter Qualified Code(s): S81.011A - Laceration without foreign body, right knee, initial encounter Condition: Stable Prescriptions: New celecoxib 200 mg capsule 200 mg PO DAILY Qty: 30 0RF methocarbamol 750 mg tablet 750 mg PO Q8H PRN (Reason: muscle spasm) Qty: 30 0RF cephalexin 500 mg capsule 500 mg PO TID 14 Days Qty: 42 0RF No Action albuterol sulfate [ProAir HFA] 90 mcg/actuation HFA aerosol inhaler 2 puff inhalation Q6H PRN (Reason: shortness of breath or wheezing) Qty: 8.5 0RF prednisone 20 mg tablet 20 mg PO BID 5 Days Qty: 10 0RF Discharge Orders: Discharge ED (Routine); Ordered 02/14/25 Ordered By: Rashmi Arellano Referrals: Angelica Anthony MD [Physician, Orthopedics] Clinical Impression: Laceration of knee, right Discharge Diet: Usual diet Discharge Activity: Resume usual activity Patient Instructions: Laceration (ED), Patient Portal & [place] Instructions Activity Restrictions/Additional Instructions: - Wound care: Wash this area daily with antibacterial soap, pHisoDerm or Dial soap is recommended, cover with Vaseline gauze, nonadherent dressing, and wrapped. Make sure to wash daily and check daily. - Remove sutures/chapo in 2 weeks. - Take antibiotics as prescribed: At the pharmacy is cephalexin, powerful antibiotic, use as directed 3 times a day. Methocarbamol/Robaxin: A powerful muscle relaxer. You may add Tylenol and ibuprofen. I would ice this area that will help with pain. Take a probiotic daily or eat active culture yogurt to avoid infectious diarrhea - A referral to Dr. Anthony has been made. This is orthopedist on-call. Typically they will see you in 8 days. They will work on this first of this next week, and call you with an appointment -As we discussed: Your high risk for infection given the amount of time before this was repaired. - If you have redness outside of the immediate area, streaking, pustulant draining, return to ED. If you have a fever greater than 100.4, return to ED. Worsening pain, ambulation, return to ED. Thank you for choosing [facility] for your healthcare needs today. You have been screened and evaluated and felt safe for discharge. Health conditions do change or evolve sometimes and as such it is important that you follow up with your Primary Doctor to be re checked, 3-5 days is a general good time frame for follow up. You are always welcome to return to the ED for re assessment if your symptoms are worsening or you have new concerns Print Language: Irish Coding Level of Care Code ED Patent Chemist for [place]
[2025-02-14] MEDS: tetanus-dipt-pertussis 0.5 mL SDV IM (23:49)
[2025-02-14] MEDS: ceFAZolin 1,000 MG in water for injection-sterile 2.5 ML 2.5 MG IM (23:49)
[2025-02-14] MEDS: lidocaine-epi 1% 20 mL INJ INJECTION (23:54)
[2025-02-15] VITALS: BP 107/68; PULSE 74; O2SAT 94
[2025-02-15 00:21] VITALS: BP 109/79; PULSE 75; O2SAT 93
== END 2025-02-15 00:23 | disposition home or self-care (01) ==
PROVIDERS: Emergency Provider Physician Assistant
DX: S81.011A Laceration without foreign body, right knee, initial encounter (principal); Z72.0 Tobacco use; W01.0XXA Fall on same level from slipping, tripping and stumbling without subsequent striking against object, initial encounter
CPT/HCPCS: 12002; 73560; 90471; 90715; 96372; 99284; J0690; J9999